=== PATIENT | female | born 1955 | race American Indian/Alaskan Native ===

== ENCOUNTER 2016-04-13 17:58 | Emergency (ER) | payer MEDICAID ==
[~2016-04-13 17:58] MED LIST: MONTELUKAST SODIUM 10 MG TAB PO SCH; predniSONE 20 MG TAB PO SCH
[2016-04-13 18:05] VITALS: RESP 18; TEMP 97.7
--- NOTE | 2016-04-13 18:23 | EDPHY ---
H & P Stated Complaint: asthma exacerbation, dx w/ pnuemina at [facility] last week Time Seen by Provider: 04/13/16 18:00 HPI/ROS: CHIEF COMPLAINT: Cough, shortness of breath HISTORY OF PRESENT ILLNESS: The patient is a homeless 61 y/o female, with a history of asthma, arriving via EMS complaining of cough and shortness of breath. She has been out of her medications for the last month since moving here from [facility]. She was evaluated at a different ED on the , 8 days ago, for these symptoms and was positive for Flu A. She was given prescriptions for Tamiflu and prednisone but was unable to pay to have them filled. She was back in the ED on the for the same symptoms and a chest x-ray at that time reportedly showed left-sided pneumonia. She was discharged with scripts for antibiotics, inhaler, and prednisone, but she again was unable to fill these. Today while eating at the [facility] she began to feel like she would have an asthma attack. She began coughing violently and had some chest tightness. The facility contacted 911. She received a duo neb and 125mg IV Solumedrol from EMS en route with improvement in her symptoms. She denies vomiting, diarrhea, dysuria, or abdominal pain. REVIEW OF SYSTEMS: A 10 point review of systems was performed and is negative with the exception of the elements mentioned in the history of present illness. Source: Patient Exam Limitations: No limitations - Personal History Current Tetanus Diphtheria and Acellular Pertussis (TDAP): Yes - Medical/Surgical History PMH: PMH includes 1. Rheumatoid arthritis - methotrexate, folic acid 2. Asthma - albuterol 3. Borderline diabetes Hx Asthma: Yes Hx Chronic Respiratory Disease: No Hx Diabetes: No Hx Cardiac Disease: No Hx Renal Disease: No Hx Cirrhosis: No Hx Alcoholism: No Hx HIV/AIDS: No Hx Splenectomy or Spleen Trauma: No Other PMH: ASTHMA/RA - Social History Smoking Status: Never smoked Alcohol Use: None Drug Use: None Additional Social History: No alcohol use. Previously lived in [facility]. Connected with [facility]. Homeless, staying at [facility]. - Physical Exam Exam: General Appearance: Alert, no acute distress. Afebrile. BP 141/100. RA pulse 0x 100%. Eyes: Pupils equal and round, no conjunctival injection, no discharge. ENT, Mouth: Mucous membranes are moist, no oropharyngeal erythema or edema. Poor dentition. Neck: No lymphadenopathy, supple. Respiratory: Lungs with distant breath sounds; no wheezes, rales, or rhonchi. Cardiovascular: Regular rate and rhythm; no murmur, rub, or gallop. Gastrointestinal: Abdomen is soft and non tender, no masses or organomegaly, bowel sounds normal. Skin: Warm and dry, no rashes, normal color. Back: Nontender to palpation over the thoracolumbar spine. Extremities: No lower extremity edema, no calf tenderness or swelling. Neurological: Alert and oriented. Moving all four extremities easily and equally. Psychiatric: Normal affect. Constitutional: Initial Vital Signs Temperature (C) 36.5 C 04/13/16 18:03 Heart Rate 86 04/13/16 18:03 Respiratory Rate 18 04/13/16 18:03 Blood Pressure 141/100 H 04/13/16 18:03 O2 Sat (%) 100 04/13/16 18:03 O2 Delivery Mode Room Air Allergies/Adverse Reactions: aspirin Allergy (Verified 04/13/16 18:02) ibuprofen Allergy (Verified 04/13/16 18:02) Home Medications: Medication Instructions Recorded Albuterol Inhaler Hfa 01/05/15 Dulera 100 Mcg/5 Mcg Inhaler 01/05/15 Montelukast Sodium 01/05/15 Folic Acid 05/21/15 Lisinopril 05/21/15 Metformin HCl 05/21/15 Methotrexate 05/21/15 Montelukast Sodium 05/21/15 Albuterol Sulfate [ALBUTEROL 0.63 mg IH Q4-6PRN PRN #30 vial.neb 09/05/15 SULFATE] predniSONE 40 mg PO DAILY 4 Days 09/05/15 Montelukast Sodium [Singulair 10 10 mg PO DAILY@1800 #10 tab 04/13/16 mg (*)] predniSONE 20 mg PO BID #10 tablet 04/13/16 predniSONE 20 mg PO BID #10 tablet 04/13/16 Medical Decision Making - Diagnostics Imaging: Study: Chest x-ray Indication: Cough, dyspnea Results: Chest x-ray was obtained. The results of the study are 1. Moderate perihilar bronchial wall thickening, with no convincing focal alveolar consolidation. If there is progression of the patient's symptoms, short -term repeat chest radiography may be considered. 2. Bone demineralization with mild midthoracic compression deformities. When clinically feasible, a DEXA scan is suggested. The study was read by the radiologist, Dr. Matias. I viewed the images myself on the PACS system. ED Course/Re-evaluation: This is a 61 y/o female presenting with a cough and shortness of breath for the last 9 days. She has a history of asthma and rheumatoid arthritis, but has been off all medications for a month as she has been unable to fill them. She has been evaluated at 2 previous EDs for her cough and was given prescriptions that she was unable to fill. She received a duo neb and Solumedrol from EMS with improvement in her symptoms today. Her lung sounds are clear on initial exam. She does not meet sepsis criteria. Plan for chest x-ray. Chest x-ray does not show evidence of pneumonia. Reassessed patient and discussed findings. She does have some wheezes at this time. Albuterol nebulizer treatment administered. Patient will be discharged with albuterol inhaler/patient prepack, prednisone and Singulair (filled through hospital pharmacy), and referral to [facility] for follow up on Saturday. She does take other prescription medications and has been informed that she will need to have these prescriptions filled through [facility]. DC BP 122/69. Differential Diagnosis: I considered a ddx that includes but is not limited to pneumonia, asthma exacerbation (my diagnosis), bronchitis, influenza, COPD, and CHF. - Data Points Medications Given: Discontinued Medications Albuterol (Proventil Neb) 3 ml IH EDNOW ONE Stop: 04/13/16 19:44 Last Admin: 04/13/16 20:03 Dose: 3 ml Albuterol Sulfate (Proventil Inh Prepack) 1 mdi TAKEHOME EDNOW ONE Stop: 04/13/16 19:35 Last Admin: 04/13/16 19:44 Dose: 1 mdi Departure - Departure Disposition: Home, Routine, Self-Care Clinical Impression: Cough, Exacerbation of asthma Condition: Good Instructions: Acute Cough (ED), Asthma (ED) Additional Instructions: Use albuterol inhaler as prescribed for cough and shortness of breath. Take the prednisone twice daily as prescribed. Take Singulair as prescribed, once daily at night. Follow up with [facility] on Saturday. You will need to get your other prescriptions filled through [facility]. Referrals: [facility] [Outside] - As per Instructions Prescriptions: Montelukast Sodium [Singulair 10 mg (*)] 10 mg PO DAILY@1800 #10 tab predniSONE 20 mg PO BID #10 tablet predniSONE 20 mg PO BID #10 tablet Report Scribed for: Cailin Ma Report Scribed by: Jazmin Candelaria Date of Report: 04/13/16 Time of Report: 18:23 Physician Review and Approval Statement: 04/15/16 08:05 Portions of this chart were entered by a medical geneticist. I, Dr. Cailin Ma, personally performed the physical exam, history taking, and MDM. I have reviewed the chart and agree with the documentation.
--- NOTE | 2016-04-13 18:56 | DX ---
Chest, PA Upright and Lateral Views, at 6:16 p.m. Clinical History: 61-year-old female with flu-like symptoms for one week, a cough, and a history of a sthma. Comparison Study: None available. Findings: Telemetry monitoring lead markers are present. There are surgical clips in the right upper quadrant of the abdomen, likely related to a prior cholecystectomy. The cardiac size is normal. There is a moderate degree of central perihilar bronchial wall thickening, which may reflect a virally-med iated bronchitis/bronchiolitis. The possibility of underlying reactive airways' disease is also menti oned. There is no focal alveolar consolidation, pleural effusion, peripheral interstitial edema, or p neumothorax. The trachea is midline. The bones are demineralized, and there are some midthoracic mild compression deformities, and it may be worthwhile to obtain a DEXA scan for more objective assessmen t. Impression: 1. Moderate perihilar bronchial wall thickening, with no convincing focal alveolar consolidation. If there is progression of the patient's symptoms, short-term repeat chest radiography may be considered . 2. Bone demineralization with mild midthoracic compression deformities. When clinically feasible, a D EXA scan is suggested.
[2016-04-13] MEDS ORDERED: ALBUTEROL INH PREPACK MDI TAKEHOME ONE (19:34)
[2016-04-13] MEDS ORDERED: ALBUTEROL 3 ML DEYVIAL IH ONE (19:43)
[2016-04-13 20:07] VITALS: BP 122/69; PULSE 89; O2SAT 94
== END 2016-04-13 20:12 | disposition home or self-care (01) ==
LOC: EDUNIT#
DX: J45.901 Unspecified asthma with (acute) exacerbation (principal)
CPT/HCPCS: J7512